=== PATIENT | female | born 1965 | race Caucasian/White ===

== ENCOUNTER 2020-06-27 08:18 | Outpatient (CLI) | payer BC | END 2020-06-27 08:19 | disposition home or self-care (01) | LOC: BICMRI 08:18 | PROVIDERS: ATTEND Family Medicine | DX: M75.51 Bursitis of right shoulder (principal); M75.111 Incomplete rotator cuff tear or rupture of right shoulder, not specified as traumatic ==

== ENCOUNTER 2021-03-12 12:48 | Outpatient (CLI) | payer BC | END 2021-03-12 12:49 | disposition home or self-care (01) | LOC: SJX 12:48 → DTY/OP 12:49 | PROVIDERS: ATTEND Student in an Organized Health Care Education/Training Program | DX: E66.9 Obesity, unspecified (principal) | CPT/HCPCS: 97802 ==

== ENCOUNTER 2023-03-25 08:59 | Outpatient (CLI) | payer BC | END 2023-03-25 09:00 | disposition home or self-care (01) | LOC: BICRAD 08:59 | PROVIDERS: ATTEND Student in an Organized Health Care Education/Training Program | DX: M54.2 Cervicalgia (principal); M25.511 Pain in right shoulder; M25.512 Pain in left shoulder; M47.812 Spondylosis without myelopathy or radiculopathy, cervical region; M50.31 Other cervical disc degeneration, high cervical region; M19.012 Primary osteoarthritis, left shoulder; Z98.1 Arthrodesis status | CPT/HCPCS: 72050 ==